=== PATIENT | male | born 1955 | race Caucasian/White ===

== ENCOUNTER 2017-12-15 11:11 | Outpatient (CLI) | payer BC, SELFPAY ==
--- NOTE | 2017-12-15 10:53 | DI.RAD_ITS ---
SYMPTOM/DIAGNOSIS: RIGHT THUMB IP PAIN RIGHT THUMB: 12/15 Four views were obtained. There are small gilberto-articular erosions of the head of the proximal phalanx of the thumb. Cartilaginous joint space appears well maintained. Correlation is requested regarding any possibility of gout. No other significant findings involving the joints of the thumb apart from minimal DJD of the greater multangular 1st metacarpal joint.
== END 2017-12-15 11:31 ==
PROVIDERS: PCP Internal Medicine; Visit Provider Student in an Organized Health Care Education/Training Program
DX: M79.644 Pain in right finger(s) (principal); M19.041 Primary osteoarthritis, right hand
CPT/HCPCS: 73140

== ENCOUNTER 2018-04-15 19:39 | Outpatient (REF) | payer BC, SELFPAY ==
[2018-04-15 22:43] LABS: ALT 39 U/L (12-78); AST 21 U/L (15-37); Albumin 3.9 g/dL (3.4-5.0); Alkaline Phosphatase 67 U/L (46-116); Anion Gap 9.2 mmol/L (3-11); BUN 25 mg/dL (7-18); Bilirubin, Total 0.3 mg/dL (0.2-1.0); CO2 26.8 mmol/L (21.0-32.0); CREATININE 1.02 mg/dL (0.70-1.30); Calcium 9.3 mg/dL (8.5-10.1); Chloride 106 mmol/L (98-107); Glucose 108 mg/dL (70-100); Potassium 4.2 mmol/L (3.5-5.1); Sodium 142 mmol/L (136-145); TSH (W/Ref FT4) 1.53 uIU/mL (0.358-3.74); Total Protein 7.2 g/dL (6.4-8.2)
[2018-04-15 22:49] LABS: Abs Immature Grans 0.02 k/cumm (0.0-0.09); Absolute Basophil Count 0.03 k/cumm (0.0-0.2); Absolute Eosinophil Count 0.31 k/cumm (0.0-0.7); Absolute Lymphocyte Count 2.28 k/cumm (1.2-3.4); Absolute Monocyte Count 0.78 k/cumm (0.11-0.7); Absolute Neutrophil Count 5.08 k/cumm (1.2-6.7); Basophils % 0.4; Eosinophils % 3.6; HCT 46.9 % (40.0-50.0); HGB 15.9 g/dL (13.5-17.5); Immature Grans % 0.2; Lymphocytes % 26.8; Mean Corp. HGB Concentration 33.9 g/dL (32.0-36.0); Mean Corpuscular Hemoglobin 31.1 pg (27.0-33.0); Mean Corpuscular Volume 91.8 fL (80-95); Mean Platelet Volume 10.8 fL (8.0-11.0); Monocytes % 9.2; Neutrophils % 59.8; Platelet Count 229 x1000/uL (130-400); RBC 5.11 m/cumm (4.50-6.00); RBC Distribution Width 12.3 % (11.8-14.1)
== END 2018-04-15 19:59 ==
LOC: NCHCN 19:39
PROVIDERS: PCP Internal Medicine; Visit Provider Nurse Practitioner
DX: R42 Dizziness and giddiness (principal)
CPT/HCPCS: 80053; 84443; 85025

== ENCOUNTER 2018-08-06 18:12 | Emergency (ER) | payer OTHER, SELFPAY ==
[2018-08-06 18:14] VITALS: BP 150/92; PULSE 53; RESP 16; TEMP 36.4; O2SAT 94
--- NOTE | 2018-08-06 18:29 | DI.COMBO_ITS ---
SYMPTOM/DIAGNOSIS: DIZZINESS, H/O PINEAL CYST PA AND LATERAL CHEST: There are no prior comparison exams. The heart size is within normal limits. The aorta is mildly tortuous. There are underlying interstitial changes. The lungs are suboptimally inflated. There is a question of atelectasis versus mild infiltrate in the right lung base. IMPRESSION: Poor pulmonary inflation. Question of atelectasis versus infiltrate at the right lung base. Underling interstitial changes. NONCONTRAST HEAD CT: Comparison is made with 11/05/16. Comparison is made with brain MRI dated 04/29/17. No intracranial hemorrhage, mass or infarct is seen. There is no significant atrophy or visible white matter changes. 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 There is no evidence of skull fracture or sinus opacification. The mastoid air cells appear clear. IMPRESSION: Stable pineal cyst. No acute abnormality.
[2018-08-06 19:04] VITALS: RESP 16
[2018-08-06 19:25] LABS: Abs Immature Grans 0.02 k/cumm (0.0-0.09); Absolute Eosinophil Count 0.13 k/cumm (0.0-0.7); Absolute Lymphocyte Count 1.35 k/cumm (1.2-3.4); Absolute Neutrophil Count 8.98 k/cumm (1.2-6.7); Basophils % 0.4; Eosinophils % 1.1; HGB 14.8 g/dL (13.5-17.5); Immature Grans % 0.2; Lymphocytes % 11.8; Mean Corp. HGB Concentration 33.6 g/dL (32.0-36.0); Mean Corpuscular Hemoglobin 30.7 pg (27.0-33.0); Mean Corpuscular Volume 91.3 fL (80-95); Mean Platelet Volume 9.8 fL (8.0-11.0); Monocytes % 7.9; Neutrophils % 78.6; Platelet Count 188 x1000/uL (130-400); RBC 4.82 m/cumm (4.50-6.00); RBC Distribution Width 12.6 % (11.8-14.1); White Blood Cell Count 11.42 k/cumm (4.4-10.8)
[2018-08-06] MEDS: Normal Saline 1,000 ML 1000 ML IV ×2 (19:30→20:22)
[2018-08-06 19:34] LABS: Absolute Basophil Count 0.05 k/cumm (0.0-0.2)
[2018-08-06 19:43] LABS: ALT 47 U/L (12-78); AST 24 U/L (15-37); Albumin 3.6 g/dL (3.4-5.0); Alkaline Phosphatase 60 U/L (46-116); Anion Gap 7.2 mmol/L (3-11); BUN 22 mg/dL (7-18); Bilirubin, Total 0.3 mg/dL (0.2-1.0); CO2 28.8 mmol/L (21.0-32.0); CREATININE 0.96 mg/dL (0.70-1.30); Calcium 8.9 mg/dL (8.5-10.1); Chloride 106 mmol/L (98-107); Glucose 96 mg/dL (70-100); Magnesium 2.1 mg/dL (1.8-2.4); Potassium 4.3 mmol/L (3.5-5.1); Sodium 142 mmol/L (136-145); Total Protein 7.1 g/dL (6.4-8.2)
[2018-08-06 19:45] LABS: Troponin I < 0.02 ng/mL (0.00-0.06)
--- NOTE | 2018-08-06 19:47 | W.ED.GENAD ---
Discharge Plan Disposition Patient Disposition: HOME Condition: Improving Discharge Details Chief Complaint: Dizzy/Sync Clinical Impression: Vertigo Primary Care Provider: Pa Dickerson ED Provider: Haven Miramontes Home Meds and New Rx's Prescriptions: Continued sertraline 100 mg tablet 100 mg PO DAILY RF: 0 loratadine 10 MG tablet,disintegrating 10 mg PO DAILY RF: 0 simvastatin 20 MG tablet 20 mg PO DAILY RF: 0 Discharge Instructions Instructions: Vertigo (ED) Additional Instructions: Drink plenty of fluids and get plenty of rest. Take your meclizine that you have at home as needed and directed for vertigo. Call your primary care doctor tomorrow morning to schedule a follow-up appointment for reevaluation. Call your neurologist Dr. Gutiérrez to schedule a follow-up appointment for reevaluation. Return immediately to the emergency department with any worsening or concerning symptoms. Discharge Data Discharge Physician: Haven Miramontes Medical Decision Making 63-year-old male with a history of vertigo, depression, high cholesterol who presents with vertigo today. Took meclizine and now his symptoms improved. Admits to dizziness worse with head movement and upon standing. Vitals within normal limits. Patient states he feels better but there was some reproduction of dizziness and eyestrain with testing for nystagmus. No focal deficits. EKG done on arrival which notes a rate of 52 and sinus with no acute ST findings . There is T wave inversion in 3 and aVF but no old EKG to compare. IV, fluids and labs ordered on arrival. Patient has a history of a pineal cyst which is followed by Dr. Gutiérrez at [facility] [place]. Will place an order for CT head, another bolus IV fluids and meclizine and reassess. 2044 --labs and imaging reviewed. Labs unremarkable. Troponin negative. CT head notes 1.3 cm pineal cyst but no acute findings. Chest x-ray notes infiltrate versus atelectasis. Patient has no history of fever, cough, shortness of breath with normal lung exam and respiratory effort, do not suspect pneumonia at this time. Patient feels much better and is requesting to go home. He has plenty of his meclizine at home. He is instructed to drink plenty of fluids, rest, take meclizine as directed, and follow-up with his primary care doctor and Dr. Gutiérrez for reevaluation. He is instructed return here immediately with any worsening or new concerning symptoms. Medical Records Medical records reviewed: Yes I reviewed the patient's medical records. Imaging Data Radiologic Study: Radiologist's impression: XR Chest, 2 Views EXAM DATE/TIME: 08/06/2018 6:31 PM CLINICAL HISTORY: 63 years old, male; Signs and symptoms; Other: Dizziness, R/O acute disease TECHNIQUE: Imaging protocol: XR of the chest, 2 views. COMPARISON: No relevant prior studies available. FINDINGS: Lungs: Atelectasis versus infiltrate in the right lower lung field. Pleural space: Unremarkable. No pleural effusion. No pneumothorax. Heart/Mediastinum: Unremarkable. No cardiomegaly. Bones/joints: Unremarkable. IMPRESSION: Atelectasis versus infiltrate in the right lower lung field. CT Head Without Contrast EXAM DATE/TIME: 08/06/2018 7:47 PM CLINICAL HISTORY: 63 years old, male; Signs and symptoms; Dizziness; Patient HX: H/o pineal gland cyst TECHNIQUE: Imaging protocol: Axial computed tomography images of the head without contrast. Coronal and sagittal reformatted images were created and reviewed. Radiation optimization: All CT scans at this facility use at least one of these dose optimization techniques: automated exposure control; mA and/or kV adjustment per patient size (includes targeted exams where dose is matched to clinical indication); or iterative reconstruction. COMPARISON: MRI IAC W/WO CONTRAST 04/29/2017 4:57 PM FINDINGS: Brain: 1.3 cm pineal gland cyst. Consider MRI for further evaluation. Ventricles: Normal. No ventriculomegaly. Bones/joints: Unremarkable. No acute fracture. Sinuses: Visualized sinuses are unremarkable. No fluid levels. Mastoid air cells: Visualized mastoid air cells are well aerated. No mastoid effusion. Soft tissues: Unremarkable. IMPRESSION: 1. No acute finding. 2. 1.3 cm pineal gland cyst. Consider MRI on an outpatient basis for further evaluation. Lab Data Lab results reviewed: Yes I reviewed the patient's lab results. Laboratory Tests Range/Units 08/06/18 08/06/18 19:12 19:12 WBC (4.4-10.8) k/cumm 11.42 H RBC (4.50-6.00) m/cumm 4.82 Hgb (13.5-17.5) g/dL 14.8 Hct (40.0-50.0) % 44.0 MCV (80-95) fL 91.3 MCH (27.0-33.0) pg 30.7 MCHC (32.0-36.0) g/dL 33.6 RDW (11.8-14.1) % 12.6 Plt Count (130-400) x1000/uL 188 MPV (8.0-11.0) fL 9.8 Immature Gran % 0.2 Neutrophils % 78.6 Lymphocytes % 11.8 Monocytes % 7.9 Eosinophils % 1.1 Basophils % 0.4 Absolute Neutrophils (1.2-6.7) k/cumm 8.98 H Absolute Lymphocytes (1.2-3.4) k/cumm 1.35 Absolute Monocytes (0.11-0.7) k/cumm 0.90 H Absolute Eosinophils (0.0-0.7) k/cumm 0.13 Absolute Basophils (0.0-0.2) k/cumm 0.05 Sodium (136-145) mmol/L 142 Potassium (3.5-5.1) mmol/L 4.3 Chloride (98-107) mmol/L 106 Carbon Dioxide (21.0-32.0) mmol/L 28.8 Anion Gap (3-11) mmol/L 7.2 BUN (7-18) mg/dL 22 H Creatinine (0.70-1.30) mg/dL 0.96 Estimated GFR/1.73 m2 (mL/min/1.73m2) >= 60.00 Glucose (70-100) mg/dL 96 Calcium (8.5-10.1) mg/dL 8.9 Magnesium (1.8-2.4) mg/dL 2.1 Total Bilirubin (0.2-1.0) mg/dL 0.3 AST (15-37) U/L 24 ALT (12-78) U/L 47 Alkaline Phosphatase (46-116) U/L 60 Troponin I (0.00-0.06) ng/mL < 0.02 Total Protein (6.4-8.2) g/dL 7.1 Albumin (3.4-5.0) g/dL 3.6 ECG Data Attestation: I personally reviewed and interpreted this ECG (s) as follows: Interpretation: Rate of 52, sinus, T wave inversion in [address]VF[address] No acute ST elevation or depression. QTc 400. QRS 110. HPI General Mode of arrival: EMS. Date/Time Provider Initiated Documentation: 08/06/18 18:25. Limitations to Documentation: no limitations. Information obtained by: patient. HPI Narrative: Patient is a 63-year-old male with a history of vertigo who presents with 2 episodes of vertigo today. Patient states his last episode was 6 months ago. He states he has meclizine at home for his vertigo which she first started experiencing in May 2017. Patient states he is seeing a chiropractor for craniosacral therapy for his vertigo. He states today when he was walking into the chiropractor office he felt dizzy which was improved with meclizine. Patient states shortly after his chiropractor began working on him and then his dizziness became worse with nausea and vomiting. Patient states he vomited 3 times. Patient states his symptoms are much improved now. He denies any headaches, fever, vision changes, chest pain, shortness of breath, extremity weakness or numbness. He states he had been having decreased hearing in his right ear for which she was referred for an MRI brain in 2016 which noted incidentally a pineal cyst. Patient states he is followed by Dr. Gutiérrez at [facility] [place] for this and that he most recently had an MRI brain in May 2017 which she states was stable. Related Data Home Medications Medication Instructions Recorded Confirmed loratadine 10 mg PO DAILY tab-cap NS 03/22/13 08/06/18 simvastatin 20 mg PO DAILY tab-cap 04/17/14 08/06/18 sertraline 100 mg tablet 100 mg PO DAILY 12/15/17 08/06/18 Allergies Allergy/AdvReac Type Severity Reaction Status Date / Time No Known Allergies Allergy Unverified 08/06/18 18:17 General Stated Complaint: Dizzy/Sync ABRIL: 3 Review of Systems Review of Systems All systems reviewed & are unremarkable except as noted in HPI and below Constitutional Reports as per HPI, Denies chills and Denies fever(s) Eyes Denies blurry vision ENT Reports dizziness, Denies sore throat and Denies throat swelling Cardiovascular Denies chest pain and Denies dyspnea Respiratory Denies cough and Denies dyspnea Gastrointestinal Denies abdominal pain, Denies diarrhea and Reports vomiting Genitourinary Denies hematuria and Denies dysuria Musculoskeletal Denies back pain and Denies numbness Integumentary/Breasts Denies lesions and Denies rash Neurologic Reports dizziness, Denies focal weakness and Denies numbness Allergic/Immunologic Denies throat swelling PENDING SALE TO [facility] Medical History Hx of hyperlipidemia (Acute) Vertigo (Acute) Depression (Chronic) Surgical History History of hydrocelectomy (Acute) History of knee surgery (Acute) Social History Smoking/Tobacco Use Status: Never Alcohol Intake: never Drug use: Never Substance use type: does not use Exam Const General: cooperative and healthy appearing Orientation: alert and awake HENMT Head: normal to inspection Ears: hearing grossly normal bilaterally, external ears normal and TM's normal bilaterally General nose exam: external nose normal Face and sinus: normal facial exam Mouth: oral mucosae normal Teeth and gingiva: dentition normal Throat: posterior oropharynx normal Eyes General: appearance normal, both eyes and all related structures Eyelids: eyelids normal Pupils: PERRL EOM: EOM intact bilaterally Neck Neck: normal visual inspection Lymphatic: no lymphadenopathy noted Chest Chest: normal inspection of the chest Resp Effort & Inspection: normal respiratory effort and able to speak in complete sentences Auscultation: clear to auscultation bilaterally Cardio Rate: regular rate Rhythm: regular rhythm GI Inspection: normal to inspection Palpation: soft, not firm, no guarding, no hepatosplenomegaly, no masses and nontender Auscultation: normal bowel sounds Skin General skin exam: no rashes or lesions noted Neuro General: alert, awake and oriented x3 Cranial Nerves: CN's II-XI intact bilaterally Cognition: normal cognition Speech: speech normal Gait: normal gait Motor: muscle tone normal throughout and strength 5/5 throughout Sensory Exam: no sensory deficits noted Other: Difficult to assess for nystagmus due to difficulty with assessing eye exam due to eye strain and dizziness Extrem General: normal to inspection, full ROM and normal capillary refill Psych Appearance: grossly normal Mental Status: mental status grossly normal Speech and Movement: speech and movement normal Affect: normal affect Thought Process: normal Course Vital Signs Temperature 97.5 F L 08/06/18 18:14 Pulse 53 L 08/06/18 18:14 Respiratory Rate 16 08/06/18 18:14 Blood Pressure 150/92 H 08/06/18 18:14 Pulse Oximetry 94 L 08/06/18 18:14 Temperature 97.5 F L 08/06/18 18:14 Temperature Source Skin 08/06/18 18:14 Pulse 53 L 08/06/18 18:14 Respiratory Rate 16 08/06/18 19:04 Respiratory Effort 08/06/18 19:04 Respiratory Depth Normal 08/06/18 19:04 Respiratory Pattern Normal 08/06/18 19:04 Blood Pressure 150/92 H 08/06/18 18:14 Pulse Oximetry 94 L 08/06/18 18:14 Oxygen Delivery Method Room Air 08/06/18 18:14 Oxygen Flow Rate 0 08/06/18 18:14 Pain Level 0 08/06/18 18:14 Lab/Test Results Lab/Test Results: Laboratory Tests Range/Units 08/06/18 08/06/18 19:12 19:12 WBC (4.4-10.8) k/cumm 11.42 H RBC (4.50-6.00) m/cumm 4.82 Hgb (13.5-17.5) g/dL 14.8 Hct (40.0-50.0) % 44.0 MCV (80-95) fL 91.3 MCH (27.0-33.0) pg 30.7 MCHC (32.0-36.0) g/dL 33.6 RDW (11.8-14.1) % 12.6 Plt Count (130-400) x1000/uL 188 MPV (8.0-11.0) fL 9.8 Immature Gran % 0.2 Neutrophils % 78.6 Lymphocytes % 11.8 Monocytes % 7.9 Eosinophils % 1.1 Basophils % 0.4 Absolute Neutrophils (1.2-6.7) k/cumm 8.98 H Absolute Lymphocytes (1.2-3.4) k/cumm 1.35 Absolute Monocytes (0.11-0.7) k/cumm 0.90 H Absolute Eosinophils (0.0-0.7) k/cumm 0.13 Absolute Basophils (0.0-0.2) k/cumm 0.05 Sodium (136-145) mmol/L 142 Potassium (3.5-5.1) mmol/L 4.3 Chloride (98-107) mmol/L 106 Carbon Dioxide (21.0-32.0) mmol/L 28.8 Anion Gap (3-11) mmol/L 7.2 BUN (7-18) mg/dL 22 H Creatinine (0.70-1.30) mg/dL 0.96 Estimated GFR/1.73 m2 (mL/min/1.73m2) >= 60.00 Glucose (70-100) mg/dL 96 Calcium (8.5-10.1) mg/dL 8.9 Magnesium (1.8-2.4) mg/dL 2.1 Total Bilirubin (0.2-1.0) mg/dL 0.3 AST (15-37) U/L 24 ALT (12-78) U/L 47 Alkaline Phosphatase (46-116) U/L 60 Troponin I (0.00-0.06) ng/mL < 0.02 Total Protein (6.4-8.2) g/dL 7.1 Albumin (3.4-5.0) g/dL 3.6 Sign Out Sign Out Data: Sign Out Comment: Case endorsed to Dr. Forte to follow-up on imaging and final disposition. Last updated by Haven Miramontes DO at 08/06/18 20:36
[2018-08-06] MEDS: Meclizine 25 MG TAB PO (19:57)
--- NOTE | 2018-08-06 20:45 | DI.VRAD_ITS ---
EXAM: CT Head Without Contrast EXAM DATE/TIME: 08/06/2018 7:47 PM CLINICAL HISTORY: 63 years old, male; Signs and symptoms; Dizziness; Patient HX: H/o pineal gland cyst TECHNIQUE: Imaging protocol: Axial computed tomography images of the head without contrast. Coronal and sagittal reformatted images were created and reviewed. Radiation optimization: All CT scans at this facility use at least one of these dose optimization techniques: automated exposure control; mA and/or kV adjustment per patient size (includes targeted exams where dose is matched to clinical indication); or iterative reconstruction. COMPARISON: MRI IAC W/WO CONTRAST 04/29/2017 4:57 PM FINDINGS: Brain: 1.3 cm pineal gland cyst. Consider MRI for further evaluation. Ventricles: Normal. No ventriculomegaly. Bones/joints: Unremarkable. No acute fracture. Sinuses: Visualized sinuses are unremarkable. No fluid levels. Mastoid air cells: Visualized mastoid air cells are well aerated. No mastoid effusion. Soft tissues: Unremarkable. IMPRESSION: 1. No acute finding. 2. 1.3 cm pineal gland cyst. Consider MRI on an outpatient basis for further evaluation. Dictated and Authenticated by: Jamey Rodriguez MD. Ordering:ISIDORO Orourke MD
--- NOTE | 2018-08-06 20:47 | DI.VRAD_ITS ---
EXAM: XR Chest, 2 Views EXAM DATE/TIME: 08/06/2018 6:31 PM CLINICAL HISTORY: 63 years old, male; Signs and symptoms; Other: Dizziness, R/O acute disease TECHNIQUE: Imaging protocol: XR of the chest, 2 views. COMPARISON: No relevant prior studies available. FINDINGS: Lungs: Atelectasis versus infiltrate in the right lower lung field. Pleural space: Unremarkable. No pleural effusion. No pneumothorax. Heart/Mediastinum: Unremarkable. No cardiomegaly. Bones/joints: Unremarkable. IMPRESSION: Atelectasis versus infiltrate in the right lower lung field. Dictated and Authenticated by: Jamey Rodriguez MD. Ordering:ISIDORO Orourke MD
[2018-08-06 21:40] VITALS: BP 133/80; PULSE 78; RESP 18; TEMP 36.6; O2SAT 97
== END 2018-08-06 21:40 | disposition home or self-care (01) ==
PROVIDERS: Emergency Provider Physician Assistant; PCP Internal Medicine
DX: R42 Dizziness and giddiness (principal); E34.8 Other specified endocrine disorders
CPT/HCPCS: 36415; 80053; 93005; 96360; 96361; 99285; 70450; 71046; 83735; 84484; 85025; 93010

== ENCOUNTER 2018-10-07 12:30 | Outpatient (CLI) | payer OTHER, SELFPAY ==
--- NOTE | 2018-10-07 13:59 | DI.RAD_ITS ---
SYMPTOMS/DIAGNOSIS: CALF PAIN, M79.662 LEFT ANKLE: Three views. No priors for comparison. No acute or healing fracture or dislocation is identified. There is a small enthesophyte at the Achilles insertion site on the calcaneus. The ankle mortise appears intact. There is soft tissue swelling about the ankle. No radiopaque foreign bodies are seen in the soft tissues. Vascular calcifications are present. IMPRESSION: Soft tissue swelling about the left ankle.
--- NOTE | 2018-10-07 14:09 | DI.US_ITS ---
SYMPTOMS/DIAGNOSIS: CALF PAIN, M79.662, ? DVT LEFT LOWER EXTREMITY ULTRASOUND: The deep veins of the left lower extremity show normal compression, augmentation and color flow. No evidence of a deep venous thrombus is seen. The saphenofemoral junction appears unremarkable. IMPRESSION: No evidence of a left lower extremity deep venous thrombus.
== END 2018-10-07 12:50 ==
PROVIDERS: PCP Internal Medicine; Visit Provider Specialist/Technologist Athletic Trainer
DX: M79.662 Pain in left lower leg (principal); M79.89 Other specified soft tissue disorders; M77.52 Other enthesopathy of left foot and ankle
CPT/HCPCS: 73610; 93971

== ENCOUNTER 2020-07-05 01:49 | Outpatient (CLI) | payer OTHER, SELFPAY ==
--- NOTE | 2020-07-05 08:17 | DI.RAD_ITS ---
EXAM: XR FOOT LT COMPLETE CLINICAL HISTORY: LT FOOT PAIN, M79.672. TECHNIQUE: 2D digital imaging was performed. COMPARISON: CR LEFT FOOT COMPLETE from 03/11/2014 FINDINGS: No evidence of acute fracture no diastasis of the Lisfranc joint. There is a healed fracture site at the base of the proximal phalanx of the 5th toe (which appeared acute in 2013). Mild subluxation at this level. There are hammertoe deformities noted. No pes planus. Calcification posteriorly at th e insertion of the Achilles on the posterior calcaneus again noted. There is no ominous inferior ben caneal spur. No calcification in the plantar fascia. No obvious osseous tarsal coalition. IMPRESSION: DATA REPOSITORY: RADIATION DOSE DELIVERED:
== END 2020-07-05 02:09 ==
PROVIDERS: PCP Internal Medicine; Visit Provider Internal Medicine
DX: M79.672 Pain in left foot (principal); Z87.81 Personal history of (healed) traumatic fracture; M20.42 Other hammer toe(s) (acquired), left foot
CPT/HCPCS: 73630

== ENCOUNTER 2020-07-10 14:46 | Outpatient (CLI) | payer OTHER, SELFPAY ==
[2020-07-10 15:49] LABS: HCT 47.1 % (40.0-50.0); MCH 31.3 pg (27.0-33.0); MCV 92.2 fL (80-95); MPV 9.3 fL (8.0-11.0); Platelet Count 232 10^3/uL (130-400); RBC 5.11 10^6/uL (4.36-5.78); RDW 11.7 % (11.8-14.1); RDW-SD 39.3 fL; WBC 9.47 10^3/uL (4.4-10.8)
[2020-07-10 15:55] LABS: ESR 7 mm//hr (0-20)
[2020-07-10 16:02] LABS: C-Reactive Protein < 0.05 mg/dL (0.0-0.3); Uric Acid 4.4 mg/dL (3.5-7.2)
[2020-07-10 16:28] LABS: D-Dimer 397 ng/mlFEU (<500)
== END 2020-07-10 14:47 | disposition home or self-care (01) ==
LOC: LBO 14:47
PROVIDERS: PCP Internal Medicine; Visit Provider Internal Medicine
DX: M79.672 Pain in left foot (principal); R60.0 Localized edema
CPT/HCPCS: 36415; 85027; 85652; 84550; 85379; 86140

== ENCOUNTER 2020-07-17 16:12 | Outpatient (REF) | payer OTHER, SELFPAY ==
--- NOTE | 2020-07-17 14:56 | SKI_PTH ---
PATIENT: Denzel Franco LOC: [facility] U#:[id number] AGE/SX: 65/M ROOM: RE07/17/[address]: Uzair Ruiz DO : 1955 BED: DIS: 07/17/2020 SPEC #: [id number] RECD: 07/17/20 18:29 STATUS: AMADOU REHalle #: [id number] LATASHA: 07/17/20 14:[address]: Uzair Ruiz DEPT: Surgical Specimen RECD BY: Tiff Valdes ENTERED: 07/17/20 18:30 SP TYPE: SKI OTHR DR: Pa Dickerson Tissues: 1 - SKIN BIOPSY(SHAVE/PUNCH) Procedures: SKIN LEVEL 4 Comments: [id number]
== END 2020-07-17 16:13 | disposition home or self-care (01) ==
LOC: LBN 16:12
PROVIDERS: PCP Internal Medicine; Visit Provider Otolaryngology Otolaryngology/Facial Plastic Surgery
DX: C44.319 Basal cell carcinoma of skin of other parts of face (principal)
CPT/HCPCS: 88305

== ENCOUNTER 2020-07-27 16:06 | Outpatient (REF) | payer OTHER, SELFPAY ==
[2020-07-28 17:25] LABS: PSA, Screening 2.5 ng/mL (0.0-4.5)
== END 2020-07-27 16:07 | disposition home or self-care (01) ==
LOC: NCHCN 16:06
PROVIDERS: PCP Internal Medicine; Visit Provider Internal Medicine
DX: Z12.5 Encounter for screening for malignant neoplasm of prostate (principal)
CPT/HCPCS: 84153

== ENCOUNTER 2020-08-17 01:57 | Outpatient (CLI) | payer OTHER, SELFPAY ==
--- NOTE | 2020-08-17 15:30 | DI.MRI_ITS ---
Exam(s) MR LOWER EXTREMITY LT WO EXAM: MR LOWER EXTREMITY LT WO CLINICAL HISTORY: LT FOOT PAIN, M79.672. TECHNIQUE: Multiplanar multisequence MRI was performed. COMPARISON: CR XR FOOT LT COMPLETE from 07/05/2020 FINDINGS: There is diffuse marrow edema seen in the 2nd metatarsal with sparing of the head. Degenerative parsons ges are seen at the articulation of the head of the 1st metatarsal and the adjacent sesamoid which in cludes marrow edema, subchondral cysts and periarticular spurring is present. The plantar fascia and visualized portion of the Achilles tendon is unremarkable. There are hammertoe deformities of the 2nd through 5th toes. The visualized ligaments and tendons are grossly unremarkable. There is mild edema seen in the midfoot, particularly of the dorsal aspect. No soft tissue mass. IMPRESSION: Marrow edema involving the 2nd metatarsal bone with sparing of the head. The findings are nonspecifi c. This may represent a stress fracture, infection or inflammation. Neoplasm is considered less lik oriana. No associated soft tissue mass or abscess is seen. DATA REPOSITORY:
== END 2020-08-17 02:17 ==
PROVIDERS: PCP Internal Medicine; Visit Provider Internal Medicine
DX: M79.672 Pain in left foot (principal); R60.0 Localized edema; M19.072 Primary osteoarthritis, left ankle and foot; M89.8X7 Other specified disorders of bone, ankle and foot
CPT/HCPCS: 73718